=== PATIENT | female | born 1995 | race Caucasian/White ===

== ENCOUNTER 2018-03-30 16:34 | Outpatient (CLI) | payer OTHER ==
[2018-03-30 16:57] VITALS: BP 133/82; PULSE 80; RESP 16; TEMP 97
[2018-03-30 17:22] LABS: Appearance,Urine Cloudy (Clear); Bacteria,Urine Few /hpf; Bilirubin,Urine Negative (Negative); Blood,Urine Negative (Negative); Color,Urine Light Yellow; Glucose,Urine (UA) Negative (Negative); Ketones,Urine Negative (Negative); Leukocyte Esterase,Urine Small (Negative); Mucus,Urine Rare /hpf; Nitrite,Urine Negative (Negative); Protein,Urine Negative (Negative); RBC,Urine 1 /hpf (0-5); Specific Gravity,Urine 1.005 (1.001-1.035); Squamous Epithelial Cell,Urine 1 /hpf (0-4); Urobilinogen,Urine <2.0 mg/dL (<2.0); WBC,Urine 3 /hpf (0-5)
[2018-03-30 17:36] LABS: ALT 22 U/L (9-52); AST 21 U/L (14-36); Blood Urea Nitrogen 6 mg/dL (7-17); LDH 514 U/L (313-618); Uric Acid 3.9 mg/dL (3.7-7.4)
[2018-03-30 17:38] LABS: HCT 34.2 % (34.0-46.0); MCH 28.1 pg (25.0-35.0); MCHC 32.2 g/dL (31.0-37.0); MCV 87.3 fL (80.0-100.0); Mean Platelet Volume 6.5; Platelet Count 233 k/uL (150-450); RBC 3.92 m/uL (3.80-5.40); RDW 15.1 % (11.5-15.5); WBC 4.9 k/uL (3.8-10.6)
[2018-03-30 18:11] LABS: Lymphocytes # (M) 1.52 k/uL (1.0-4.8); Monocytes # (M) 0.54 k/uL (0-1.0); Neutrophils # (M) 2.84 k/uL (1.3-7.7); Neutrophils % (M) 58 %; Nucleated Red Blood Cells 0 /100 WBC (0-0); Polychromasia Present; Total Cells Counted 100
--- NOTE | 2018-04-04 16:22 | P.MSEPDOC ---
Presenting Problems - Arrival Data Date of Arrival on Unit: 03/30/18 Time of Arrival on Unit: 16:45 Mode of Transport: Ambulatory - Complaint OB-Reason for Admission/Chief Complaint: Elevated Blood Pressure Medical History - Information : 2 Para: 1 Term: 0 : 1 Abortions: Spontaneous or Elective: 0 Number of Living Children: 1 - Gestational Age Gestational Age by CONTRERAS (wks/days): 25 Weeks and 4 Days - History Complications: Prior Review of Systems - Review of Systems Constitutional: No problems Breast: No problems ENT: No problems Cardiovascular: No problems Respiratory: No problems Gastrointestinal: No problems Genitourinary: No problems Musculoskeletal: No problems Neurological: No problems Skin: No problems Vital Signs - Temperature Temperature: 97.0 F Temperature Source: Tympanic - Pulse Right Brachial Pulse Rate: 80 Pulse Assessment Method: Automatic Cuff - Respirations Respiratory Rate: 16 Oxygen Delivery Method: Room Air - Blood Pressure Right Arm Blood Pressure: 133/82 Blood Pressure Mean: 99 Blood Pressure Source: Automatic Cuff Medical Screen Scoring (Pre) - Cervical Exam Dilation: Exam Deferred Effacement: Exam Deferred Membranes: Intact - Uterine Contractions Frequency: N/A Duration: N/A Intensity: N/A - Maternal Vital Signs Maternal Temperature: N/A Maternal Blood Pressure: N/A Signs of Preeclampsia: Headache = 1 Maternal Respirations: N/A - Pain Assessment Pain Scale Used: Numeric (1 - 10) Pain Intensity: 0 Pain Management Goal: 0 - Maternal Trauma Maternal Trauma: N/A - Assessment Baseline FHR: 145 Heart Rate - NICHD Category: Category I (Normal) = 0 - Total Score Total Score (Pre): 1 - Level of Risk Level of Risk: Low (0-5) Physician Notification (Pre) - Physician Notified Physician Notified Date: 03/30/18 Physician Notified Time: 16:57 Physician/Practitioner Notifed:: Dr. Bernal Spoke With: Dr. Bernal New Order Received: Yes - Notification Comment Comment: to wait for labs Medical Screen Scoring (Post) - Cervical Exam Dilation: Exam Deferred Effacement: Exam Deferred - Uterine Contractions Frequency: > 5 minutes apart = 1 Intensity: N/A - Maternal Vital Signs Maternal Temperature: N/A Maternal Blood Pressure: N/A Signs of Preeclampsia: N/A Maternal Respirations: N/A - Total Score Total Score (Post): 1 - Post Treatment Level of Risk Post Treatment Level of Risk: Low (0-5) Physician Notification (Post) - Physician Notified Physician Notified Date: 03/30/18 Physician Notified Time: 18:15 Physician/Practitioner Notified:: dr Bernal Spoke With: Dr Bernal New Order Received: Yes - Notification Comment Comment: labs and vitals reviewed. dc home. pt to call for appt to see Dr Mccartney next week. Disposition - Disposition Discharge Date: 03/30/18 Discharge Time: 18:17 I agree with the RN Medical Screening Exam: Yes Risk & Benefit of care provided described in d/c instruction: Yes Diagnosis: GESTATIONAL HTN W/O SIGNIFICANT PROTEINURIA, UNSP TRIMESTER
== END 2018-03-30 18:18 | disposition home or self-care (01) ==
LOC: FBPOP 16:34
PROVIDERS: ATTEND Obstetrics & Gynecology
DX: O13.2 Gestational [pregnancy-induced] hypertension without significant proteinuria, second trimester (principal); Z3A.25 25 weeks gestation of pregnancy
CPT/HCPCS: 82570; 84156; 82565; 83615; 84450; 84460; 84520; 84550; 85025; 81001; G0463; 99215

== ENCOUNTER 2018-05-29 15:08 | Inpatient (IN) | payer OTHER ==
[2018-05-29] MEDS ORDERED: LACTATED RINGERS 1,000 ML IV SCH (15:45)
[2018-05-29] MEDS ORDERED: CITRIC ACID-SODIUM CITRATE 15 ML CUP PO ONE (15:49)
[2018-05-29] MEDS ORDERED: ceFAZolin IN SWFI 2 GM/20 ML SYRINGE IVP ONE (15:49)
[2018-05-29] MEDS ORDERED: NALBUPHINE 10 MG/ML (1 ML AMP) ONE (16:00)
[2018-05-29] MEDS ORDERED: MORPHINE SULFATE (PF) 0.3 MG/0.3 ML SYR ONE (16:00)
[2018-05-29] MEDS ORDERED: OXYTOCIN 10 UNIT/ML 1 ML VIAL ONE (16:00)
[2018-05-29] MEDS ORDERED: ONDANSETRON 4 MG/2 ML VIAL ONE (16:00)
[2018-05-29] MEDS ORDERED: fentaNYL (PF) 50 MCG/ML 2 ML AMP ONE (16:00)
[2018-05-29] MEDS ORDERED: KETOROLAC 30 MG/ML 1 ML VIAL ONE (16:00)
[2018-05-29] MEDS ORDERED: KETOROLAC 30 MG/ML 1 ML VIAL IVP PRN (16:44)
[2018-05-29] MEDS ORDERED: HYDROcodone/APAP 7.5-325MG 1 EACH TAB PO PRN (16:44)
[2018-05-29] MEDS ORDERED: NALOXONE 0.4 MG/ML 1 ML VIAL IV PRN (16:44)
[2018-05-29] MEDS ORDERED: ONDANSETRON 4 MG/2 ML VIAL IVP PRN (16:44)
[2018-05-29] MEDS ORDERED: ZOLPIDEM 5 MG TAB PO PRN (16:44)
[2018-05-29] MEDS ORDERED: diphenhydrAMINE 50 MG/ML 1 ML VIAL IVP PRN ×2 (16:44)
[2018-05-29] MEDS ORDERED: IBUPROFEN 600 MG TAB PO PRN (16:44)
[2018-05-29] MEDS ORDERED: diphenhydrAMINE 50 MG CAP PO PRN (16:44)
[2018-05-29] MEDS ORDERED: METOCLOPRAMIDE 5 MG/ML 2 ML VIAL IVP PRN (16:44)
[2018-05-29] MEDS ORDERED: SIMETHICONE 80 MG CHEWABLE PO PRN (16:44)
[2018-05-29] MEDS ORDERED: ACETAMINOPHEN TAB 325 MG TAB PO PRN (16:44)
[2018-05-29] MEDS ORDERED: LANOLIN CREAM 5 GM TUBE TOPICAL PRN (16:44)
[2018-05-29] MEDS ORDERED: diphenhydrAMINE 25 MG CAP PO PRN (16:44)
[2018-05-29] MEDS ORDERED: OXYTOCIN 20 UNITS/1000 ML NS 1,000 ML IV SCH (16:45)
--- NOTE | 2018-05-29 16:55 | P.HPOB ---
History of Present Illness H&P Date: 05/29/18 Chief Complaint: repetitive variables on NST 22 year old at 34 weeks 1 day presented to the office for an NST due to her gestational hypertension. We were unable to get an adequate NST because we were unable to keep baby on the monitor to determine a baseline. I sent her over to the hospital where the NST was evident that the baby had a baseline of 140 with moderate variability but recurrent variables. I called Dr James who is MFM at [facility]. He advised that since the variables are repetitive, we should move toward delivery. It is not likely that she is stable for transfer at this point. I informed the patient and she consented for a C-s ection. Review of Systems All systems: negative Constitutional: Denies chills, Denies fever Eyes: denies blurred vision, denies pain Ears, nose, mouth and throat: Denies headache, Denies sore throat Cardiovascular: Denies chest pain, Denies shortness of breath Respiratory: Denies cough Gastrointestinal: Denies abdominal pain, Denies diarrhea, Denies nausea, Denies vomiting Genitourinary: Denies dysuria, Denies hematuria Musculoskeletal: Denies myalgias Integumentary: Denies pruritus, Denies rash Neurological: Denies numbness, Denies weakness Psychiatric: Denies anxiety, Denies depression Endocrine: Denies fatigue, Denies weight change Past Medical History Additional Past Medical History / Comment(s): OB history: first baby was delivered by and she had pre-eclampsia with severe features. THis is her second and she has had care with Dr Mccartney. A+, Rub Imm, RPR NR, Hep b neg. She had consultations and USs with [facility] for her history of pre-eclampsia. SHe was on baby ASA and also taking labetalol since 27 weeks for GHTN. History of Any Multi-Drug Resistant Organisms: None Reported Past Anesthesia/Blood Transfusion Reactions: No Reported Reaction Past Psychological History: No Psychological Hx Reported Smoking Status: Never smoker Medications and Allergies Home Medications Medication Instructions Recorded Confirmed Type Aspirin [Adult Low Dose Aspirin EC] 81 mg PO DAILY 03/21/18 05/29/18 History Pnv,Calcium 72/Iron/Folic Acid 1 each PO DAILY 03/21/18 05/29/18 History [ Plus Tablet] Labetalol [Trandate] 100 mg PO BID 05/29/18 05/29/18 History Allergies Allergy/AdvReac Type Severity Reaction Status Date / Time No Known Allergies Allergy Verified 03/21/18 22:25 Exam Osteopathic Statement: *. No significant issues noted on an osteopathic structural exam other than those noted in the History and Physical/Consult. Intake and Output 05/29/18 05/29/18 05/29/18 06:59 14:59 22:59 Other: Weight 94.347 kg HEart: RRR Lungs: CTAB Abdomen: soft, nontender Extremeties: neg manny's Assessment and Plan (1) Irregular heart rate affecting management of mother Current Visit: Yes Status: Acute Code(s): O36.8390 - MATERN CARE FOR ABNLT FETL HRT RATE OR RHYM, UNSP TRI, UNSP SNOMED Code(s): 143214370 Plan: 1. repeat low transverse
[2018-05-29 16:56] VITALS: BMI 35.6
--- NOTE | 2018-05-29 17:02 | P.OP ---
Date of Procedure: 05/29/18 Preoperative Diagnosis: 1. irregular heart rate affecting care of the mother 2. at 34 weeks 1 day 3. gestational hypertension Postoperative Diagnosis: 1. irregular heart rate affecting care of the mother 2. at 34 weeks 1 day 3. gestational hypertension Procedure(s) Performed: repeat low transverse Anesthesia: spinal Surgeon: Radha Gonzales Insurance Risk Manager #1: Adolfo Wilson Estimated Blood Loss (ml): 500 IV fluids (ml): 700 Urine output (ml): 100 Pathology: other (placenta) Condition: stable Disposition: floor Indications for Procedure: 22-year-old presented to the office at 34 weeks and 1 day for NST due to her gestational hypertension. Her unable to determine a baseline in the NST in the office so we sent her to the hospital for her NST. When she was on the monitor there was moderate variability and the baseline was 140. However, there were repetitive variable decelerations down to 60 lasting 30 seconds to 1 minute. She is not filiberto. I did make a phone call to the maternal medicine specialist in [place], Dr. Roman, who advised since the baby was having repetitive decelerations we should move towards delivery quickly. An from the patient and she was consented for repeat low transverse . Operative Findings: Vigorous male infant, Apgars pending and weight is pending. Normal uterus, tubes, ovaries. Description of Procedure: Patient was taken to the operating room where spinal anesthesia was found be adequate. She was prepped and draped in normal sterile fashion in dorsal supine position with a leftward tilt. Pfannenstiel skin incision was made the scalpel and carried through to the underlying layer of fascia with the scalpel. Fascia was incised in midline and carried bilaterally with the Gordon scissors. The superior aspect of the fascial incision was grasped with Valarie clamps elevated and the underlying rectus muscles dissected off with the Gordon's. Attention was then turned to inferior aspect of same incision which in a similar fashion was grasped tented up and the underlying rectus muscles dissected off with the Gordon's. The rectus muscles were the midline and the peritoneum was identified tented up and entered sharply with the scalpel. The incision was extended superiorly and inferiorly with good visualization of the bladder. The bladder blade was inserted and the vesicouterine peritoneum was incised the Metzenbaums then carried bilaterally and bladder flap created digitally. A low transverse incision was then made on the uterus with the scalpel. This was carried bilaterally and digital manner. Infant's head delivered atraumatically, nose and mouth bulb suctioned, cord clamped and cut, infant handed off to waiting nurses. Apgars pending, weight pending. Placenta delivered manually, intact with three-vessel cord. The uterus is exteriorized and cleared of all clots and debris. The uterine incision was closed with 0 Vicryl in a running locked fashion. Second layer of the same sutures used in imbricating fashion to obtain excellent hemostasis. Both ovaries and tubes appeared normal. The uterus was placed back into the abdomen. The peritoneum was reapproximated using 2-0 Vicryl in a running fashion. The muscles were reapproximated using 2- 0 Vicryl in interrupted fashion. The fascia was reapproximated using 0 Vicryl in a running fashion. The subcutaneous tissues closed with 3-0 Vicryl running fashion. The skin was closed smith. Patient tolerated the procedure well, sponge and instrument counts were correct times 2 and she was taken to the recovery room in stable condition.
[2018-05-29 17:19] LABS: HCT 31.3 % (34.0-46.0); HGB 10.1 gm/dL (11.4-16.0); Hypochromasia Slight; MCH 27.5 pg (25.0-35.0); MCHC 32.2 g/dL (31.0-37.0); MCV 85.4 fL (80.0-100.0); Mean Platelet Volume 7.2; Platelet Count 212 k/uL (150-450); Poikilocytosis Slight; RBC 3.67 m/uL (3.80-5.40); RDW 14.8 % (11.5-15.5); WBC 5.3 k/uL (3.8-10.6)
[2018-05-29 17:49] LABS: Lymphocytes # (M) 1.86 k/uL (1.0-4.8); Monocytes # (M) 0.53 k/uL (0-1.0); Neutrophils # (M) 2.92 k/uL (1.3-7.7); Neutrophils % (M) 55 %; Nucleated Red Blood Cells 0 /100 WBC (0-0); Total Cells Counted 100
[2018-05-29 17:50] LABS: Large Platelets Present; Polychromasia Present
[2018-05-29] MEDS: LACTATED RINGERS 1,000 ML IV SCH ×2 (19:07→20:44)
[2018-05-29] MEDS: SENNOSIDES-DOCUSATE SODIUM 1 EACH TAB PO SCH (20:42)
[2018-05-29] MEDS: LABETALOL 100 MG TAB PO SCH (20:43)
[2018-05-30 07:07] LABS: Basophils % (A) 0 %; Eosinophils # (A) 0.1 k/uL (0-0.7); Eosinophils % (A) 1 %; HCT 33.2 % (34.0-46.0); HGB 10.9 gm/dL (11.4-16.0); Hypochromasia Slight; Lymphocytes # (A) 0.7 k/uL (1.0-4.8); Lymphocytes % (A) 8 %; MCHC 32.8 g/dL (31.0-37.0); MCV 85.4 fL (80.0-100.0); Mean Platelet Volume 7.4; Monocytes # (A) 0.4 k/uL (0-1.0); Monocytes % (A) 5 %; Neutrophils # (A) 7.6 k/uL (1.3-7.7); Neutrophils % (A) 85 %; Platelet Count 221 k/uL (150-450); Poikilocytosis Slight; RBC 3.89 m/uL (3.80-5.40); RDW 14.6 % (11.5-15.5)
--- NOTE | 2018-05-30 08:00 | P.PNOBGPC ---
Subjective - Subjective Principal diagnosis: S/P RLTCS POD #1 Interval history: Pt seen and examined. Denies N/V, F/C, CP, SOB, calf pain. Patient reports: Reports appetite normal, Reports voiding normally, Reports pain well controlled, Reports ambulating normally Objective - Vital Signs Latest vital signs: Vital Signs Temp Pulse Resp BP Pulse Ox 05/30/18 07:41 97.9 F 84 18 125/82 98 05/30/18 04:00 98.1 F 88 18 137/92 98 05/30/18 00:00 97.5 F L 74 18 138/72 97 05/29/18 20:00 98.0 F 67 16 127/70 99 05/29/18 18:48 12 103/61 05/29/18 18:18 63 14 99/58 05/29/18 17:48 64 14 100/58 05/29/18 17:33 75 14 95/54 98 05/29/18 17:16 14 120/69 97 05/29/18 17:03 75 16 115/63 98 05/29/18 16:48 96.6 F L 66 14 124/68 99 Intake and Output 05/29/18 05/30/18 05/30/18 22:59 06:59 14:59 Intake Total 700 1850 Output Total 150 600 Balance 550 1250 Intake: IV 700 1250 Lactated Ringers 1,000 ml 700 1250 @ 125 mls/hr IV .Q8H [facility] Rx#:[id number] Oral 600 Output: Urine 150 600 Other: Voiding Method Indwelling Catheter # Voids 1 Weight 94.347 kg - Exam Lungs: bilateral: normal Chest: Normal S1, Normal S2 Extremities: Present: normal Abdomen: Present: normal appearance, soft. Absent: distention, tenderness Incision: Present: normal, dry, intact Uterus: Present: normal, firm - Labs Labs: Abnormal Lab Results - Last 24 Hours (Table) 05/29/18 05/30/18 Range/Units 17:08 06:55 RBC 3.67 L (3.80-5.40) m/uL Hgb 10.1 L 10.9 L (11.4-16.0) gm/dL Hct 31.3 L 33.2 L (34.0-46.0) % Lymphocytes # 0.7 L (1.0-4.8) k/uL Assessment and Plan (1) Irregular heart rate affecting management of mother Current Visit: Yes Status: Resolved Code(s): O36.8390 - MATERN CARE FOR ABNLT FETL HRT RATE OR RHYM, UNSP TRI, UNSP SNOMED Code(s): 956079074 (2) Status post repeat low transverse section Current Visit: Yes Status: Acute Code(s): Z98.891 - HISTORY OF UTERINE SCAR FROM PREVIOUS SURGERY SNOMED Code(s): 304841094 Plan: 1. cont po care 2. increase ambulation 3. po pain meds 4. reg diet.
[2018-05-30] MEDS: LABETALOL 100 MG TAB PO SCH ×2 (08:41→21:08)
[2018-05-30] MEDS: SENNOSIDES-DOCUSATE SODIUM 1 EACH TAB PO SCH ×2 (08:41→21:08)
--- NOTE | 2018-05-30 10:41 | P.PN ---
Progress Note - Text Progress Note Date: 05/30/18 Postoperative day 1 status post section under spinal anesthesia, and intrathecal morphine given for postoperative analgesia, patient doing well, there is no anesthesia related complications, Patient had no headache, vital signs stable , Assessment and plan= postop day 1 status post , doing well there is no anesthesia related complication.
[2018-05-30] MEDS: LACTATED RINGERS 1,000 ML IV SCH (16:07)
[2018-05-31] MEDS: SENNOSIDES-DOCUSATE SODIUM 1 EACH TAB PO SCH (07:46)
--- NOTE | 2018-05-31 08:04 | P.DS ---
Providers Date of admission: 05/29/18 15:49 Expected date of discharge: 05/31/18 Attending physician: Yessica Mccartney Primary care physician: Yessica Mccartney - Discharge Diagnosis(es) (1) Irregular heart rate affecting management of mother Current Visit: Yes Status: Resolved (2) Status post repeat low transverse section Current Visit: Yes Status: Acute Hospital Course: Patient presented for NST for gestational hypertension at 34.1. On the NST there was heart rate irregularities and MFM advised to deliver. She underwent a repeat low transverse and the baby was stabilized and sent to a tertiary facility. Pts postop course was uncomplicated. I kept her on the labetalol 100mg bid and her pressures were up to 130's/80's. We reviewed the s/s of pp pre-eclampsia and she will call with any issues. HEr pain is well controlled. She is tolerating a reg diet and passing flatus. Her incision is C/D/I and she will be discharged home POD #2 in stable condition to follow up with Dr Mccartney in 1 week. Plan - Discharge Summary Discharge Rx Participant: No New Discharge Prescriptions: New Ibuprofen [Motrin] 600 mg PO Q6HR PRN #30 tab PRN Reason: Mild Pain Or Fever >= 100.5 No Action Pnv,Calcium 72/Iron/Folic Acid [ Plus Tablet] 1 each PO DAILY Aspirin [Adult Low Dose Aspirin EC] 81 mg PO DAILY Labetalol [Trandate] 100 mg PO BID Discharge Medication List Aspirin [Adult Low Dose Aspirin EC] 81 mg PO DAILY 03/21/18 [History] Pnv,Calcium 72/Iron/Folic Acid [ Plus Tablet] 1 each PO DAILY 03/21/18 [History] Labetalol [Trandate] 100 mg PO BID 05/29/18 [History] Ibuprofen [Motrin] 600 mg PO Q6HR PRN #30 tab 05/31/18 [Rx] Follow up Appointment(s)/Referral(s): Yessica Mccartney DO [Primary Care Provider] - 1 Week Discharge Disposition: HOME SELF-CARE
[2018-05-31 08:08] VITALS: BP 130/78; PULSE 100; RESP 14; TEMP 98.6
[2018-05-31] MEDS: LABETALOL 100 MG TAB PO SCH (09:54)
== END 2018-05-31 11:18 | disposition home or self-care (01) | DRG 788 ==
LOC: FBPOP 15:08 → 4FBP 15:49
PROVIDERS: ADMIT Obstetrics & Gynecology; ATTEND Obstetrics & Gynecology
PROC: 10D00Z1 Extraction of Products of Conception, Low, Open Approach (ICD-10-PCS; principal; 2018-05-29 16:00)
DX: O76 Abnormality in fetal heart rate and rhythm complicating labor and delivery (principal); O13.4 Gestational [pregnancy-induced] hypertension without significant proteinuria, complicating childbirth; O34.211 Maternal care for low transverse scar from previous cesarean delivery; Z37.0 Single live birth; Z3A.34 34 weeks gestation of pregnancy; Z79.82 Long term (current) use of aspirin; Z79.899 Other long term (current) drug therapy
CPT/HCPCS: 59025; 85025; 86850; 86900; 86901; 99213

== ENCOUNTER 2021-06-13 00:23 | Emergency (ER) | payer OTHER ==
[2021-06-13 00:36] VITALS: TEMP 98.3
--- NOTE | 2021-06-13 02:56 | XR ---
EXAMINATION TYPE: XR chest 2V DATE OF EXAM: 06/13/2021 COMPARISON: NONE HISTORY: Chest pain TECHNIQUE: 2 views FINDINGS: Heart and mediastinum are normal. Lungs are clear. Diaphragm is normal. Bony thorax appears normal. IMPRESSION: Normal chest.
[2021-06-13 03:42] LABS: HCT 33.1 % (34.0-46.0); HGB 10.7 gm/dL (11.4-16.0); Hypochromasia Moderate; MCH 25.2 pg (25.0-35.0); MCHC 32.5 g/dL (31.0-37.0); MCV 77.6 fL (80.0-100.0); Mean Platelet Volume 7.2; Microcytosis Slight; Platelet Count 313 k/uL (150-450); RBC 4.27 m/uL (3.80-5.40); RDW 15.1 % (11.5-15.5); WBC 3.3 k/uL (3.8-10.6)
[2021-06-13 03:44] LABS: ALT 12 U/L (4-34); AST 20 U/L (14-36); African American GFR (CKD) >90 (>60 ml/min/1.73 sqM); Albumin 3.9 g/dL (3.5-5.0); Alkaline Phosphatase 75 U/L (38-126); Amylase 56 U/L (30-110); Anion Gap 9 mmol/L; Blood Urea Nitrogen 11 mg/dL (7-17); Calcium 8.8 mg/dL (8.4-10.2); Carbon Dioxide 24 mmol/L (22-30); Chloride 105 mmol/L (98-107); Glucose 108 mg/dL (74-99); INR 0.9 (<1.2); Lipase 107 U/L (23-300); Non-African American GFR(CKD) >90 (>60 ml/min/1.73 sqM); Partial Thromboplastin Time 24.3 sec (22.0-30.0); Potassium 3.6 mmol/L (3.5-5.1); Prothrombin Time 10.1 sec (9.0-12.0); Sodium 138 mmol/L (137-145); Total Bilirubin 0.3 mg/dL (0.2-1.3); Total Protein 6.9 g/dL (6.3-8.2)
[2021-06-13 04:32] LABS: Lymphocytes # (M) 0.99 k/uL (1.0-4.8); Monocytes # (M) 0.36 k/uL (0-1.0); Neutrophils # (M) 1.95 k/uL (1.3-7.7); Neutrophils % (M) 59 %; Nucleated Red Blood Cells 0 /100 WBC (0-0); Total Cells Counted 100
--- NOTE | 2021-06-13 04:52 | ED ---
Chest Pain HPI - General Chief Complaint: Chest Pain Stated Complaint: Chest Pain Time Seen by Provider: 06/13/21 02:34 Source: patient, EMS Mode of arrival: EMS Limitations: no limitations - History of Present Illness MD Complaint: chest pain Onset/Timin -: minutes(s) Onset: during rest Pain Location: substernal Severity: moderate Quality: aching Consistency: constant Improves With: nothing Worsens With: nothing Treatments Prior to Arrival: none - Related Data Home Medications Medication Instructions Recorded Confirmed Aspirin [Adult Low Dose Aspirin EC] 81 mg PO DAILY 03/21/18 05/29/18 Pnv,Calcium 72/Iron/Folic Acid 1 each PO DAILY 03/21/18 05/29/18 [ Plus Tablet] Labetalol [Trandate] 100 mg PO BID 05/29/18 05/29/18 Previous Rx's Medication Instructions Recorded Ibuprofen [Motrin] 600 mg PO Q6HR PRN #30 tab 05/31/18 Allergies Allergy/AdvReac Type Severity Reaction Status Date / Time No Known Allergies Allergy Verified 06/13/21 00:36 Review of Systems ROS Statement: Those systems with pertinent positive or pertinent negative responses have been documented in the HPI. ROS Other: All systems not noted in ROS Statement are negative. Constitutional: Denies: fever, chills Respiratory: Denies: cough, dyspnea Cardiovascular: Reports: chest pain. Denies: palpitations, edema Gastrointestinal: Denies: abdominal pain, vomiting, diarrhea Genitourinary: Denies: dysuria Musculoskeletal: Denies: back pain Skin: Denies: rash Neurological: Denies: headache, weakness, numbness EKG Findings - EKG Results: EKG: interpreted by ERIN LOCKE, sinus rhythm (Rate 76 bpm), normal axis, normal QRS, normal ST/T, no acute changes Past Medical History Past Medical History: Hypertension Additional Past Medical History / Comment(s): OB history: first baby was delivered by and she had pre-eclampsia with severe features. THis is her second and she has had care with Dr Mccartney. A+, Rub Imm, RPR NR, Hep b neg. She had consultations and USs with [facility] for her history of pre-eclampsia. SHe was on baby ASA and also taking labetalol since 27 weeks for GHTN. History of Any Multi-Drug Resistant Organisms: None Reported Past Surgical History: Section Additional Past Surgical History / Comment(s): bilateral ankle surgery, bladder surgery as a child Past Anesthesia/Blood Transfusion Reactions: No Reported Reaction Past Psychological History: No Psychological Hx Reported Smoking Status: Vaper Past Alcohol Use History: None Reported Past Drug Use History: None Reported - Past Family History Mother Family Medical History: Diabetes Mellitus, Hypertension Additional Family Medical History / Comment(s): past breast cancer General Exam Limitations: no limitations General appearance: alert, in no apparent distress Head exam: Present: atraumatic, normocephalic Eye exam: Present: normal appearance. Absent: scleral icterus, conjunctival injection Neck exam: Present: normal inspection, full ROM Respiratory exam: Present: normal lung sounds bilaterally. Absent: respiratory distress, wheezes, rales, rhonchi, stridor Cardiovascular Exam: Present: regular rate, normal rhythm, normal heart sounds. Absent: systolic murmur, diastolic murmur, rubs, gallop GI/Abdominal exam: Present: soft. Absent: distended, tenderness, guarding, rebound, rigid, mass Extremities exam: Present: normal inspection, normal capillary refill. Absent: pedal edema, calf tenderness Back exam: Present: normal inspection. Absent: CVA tenderness (R), CVA tenderness (L) Neurological exam: Present: alert Skin exam: Present: warm, dry, intact, normal color. Absent: rash Course Vital Signs 06/13/21 06/13/21 00:33 05:18 Temperature 98.3 F Pulse Rate 87 78 Respiratory 20 18 Rate Blood Pressure 138/90 130/81 O2 Sat by Pulse 98 98 Oximetry Disposition Clinical Impression: Chest pain, Strain of forearm, right Disposition: HOME SELF-CARE Condition: Good Instructions (If sedation given, give patient instructions): Chest Pain (ED), Cervical Strain (DC) Is patient prescribed a controlled substance at d/c from ED?: No Referrals: None,Stated [Primary Care Provider] - 1-2 days
[2021-06-13 05:19] VITALS: BP 130/81; PULSE 78; RESP 18
== END 2021-06-13 05:19 | disposition home or self-care (01) ==
LOC: EC 00:23
DX: R07.89 Other chest pain (principal); S56.911A Strain of unspecified muscles, fascia and tendons at forearm level, right arm, initial encounter; I10 Essential (primary) hypertension; F17.290 Nicotine dependence, other tobacco product, uncomplicated; Z79.82 Long term (current) use of aspirin; Z79.899 Other long term (current) drug therapy; X58.XXXA Exposure to other specified factors, initial encounter
CPT/HCPCS: 36415; 71046; 80053; 82150; 83690; 83735; 84484; 85025; 85379; 85610; 85730; 93005; 99285

== ENCOUNTER → 2021-06-25 | Outpatient (CLI) | payer OTHER ==
--- NOTE | 2021-06-25 13:26 | US ---
EXAMINATION TYPE: US pelvic complete DATE OF EXAM: 06/25/2021 COMPARISON: NONE CLINICAL HISTORY: N92.1 EXCESSIVE AND FREQUENT MENSTRUATION WITH IRR. irregular cycles that can be he robe at times ongoing for 10 years, A2, c-sections TECHNIQUE: TA. Transabdominal sonographic images of the pelvis were acquired. Date of LMP: 06/04/2021 EXAM MEASUREMENTS: Uterus: 11.4 x 7.8 x 4.5 cm Endometrial Stripe: 1.1 cm Right Ovary: 3.9 x 3.2 x 3.3 cm Left Ovary: 3.7 x 3.1 x 2.1 cm 1. Uterus: Retroflexed wnl 2. Endometrium: wnl 3. Right Ovary: 2.5 x 2.4 x 2.2cm simple cyst 4. Left Ovary: multiple small follicles 5. Bilateral Adnexa: wnl 6. Posterior cul-de-sac: wnl Urinary bladder is sonolucent. IMPRESSION: 1. 2.4 cm cyst right ovary. Follow-up exam following the next normal menstrual period or 6 weeks is r ecommended.
== END | disposition home or self-care (01) ==
LOC: RADUSWWP 12:17
PROVIDERS: ATTEND Obstetrics & Gynecology
DX: N83.201 Unspecified ovarian cyst, right side (principal)
CPT/HCPCS: 76856